=== PATIENT | female | born 1950 | race Caucasian/White ===

== ENCOUNTER 2022-05-23 10:38 | Emergency (ER) | payer MEDICARE, BC ==
[~2022-05-23] VITALS: Ht 152.4 cm; Wt 85.7 kg
[2022-05-23 10:56] VITALS: BP 122/72
--- NOTE | 2022-05-23 11:18 | NUR ---
71 y/o female, pt presents to ed with c/o diarrhea, body aches for 4 days. skin is pink/warm/dry. a&o x4 with even and steady gait. lungs clear bl, heart rate even and regular. pt denies dysuria, hematuria, urinary frequency or retention, or anyone sick in the household with the same symptoms. pmh: breast ca nka
[2022-05-23] MEDS ORDERED: KETOROLAC 15 MG/ML VIAL IM ONE (13:00)
[2022-05-23] MEDS ORDERED: ONDA-188 PO (14:38)
[2022-05-23] MEDS ORDERED: IBUP-2213 PO (14:39)
[2022-05-23] MEDS ORDERED: KETOROLAC 15 MG/ML VIAL ONE (14:54)
--- NOTE | 2022-05-23 15:01 | NUR ---
SWABBED AND WALKED TO LAB
[2022-05-23 15:46] VITALS: BP 124/70
--- NOTE | 2022-05-23 15:46 | NUR ---
Patient discharged with v/s stable. Written and verbal after care instructions given and explained. Patient alert, oriented and verbalized understanding of instructions. Ambulatory with steady gait. All questions addressed prior to discharge. ID band removed. Patient advised to follow up with PMD. Rx of MOTRIN, ZOFRAN given. Patient educated on indication of medication including possible reaction and side effects. Opportunity to ask questions provided and answered.
== END 2022-05-23 15:46 | disposition home or self-care (01) ==
LOC: MED 10:38
DX: J06.9 Acute upper respiratory infection, unspecified (principal); Z20.822 Contact with and (suspected) exposure to COVID-19; Z85.3 Personal history of malignant neoplasm of breast; Z98.890 Other specified postprocedural states
CPT/HCPCS: 87426; 87804; 96372; 99283; J1885